=== PATIENT | male | born 1975 | race Asian ===

== ENCOUNTER 2021-05-18 03:51 | Emergency (ER) | payer MEDICAID ==
[~2021-05-18] VITALS: Ht 149.9 cm; Wt 40.3 kg
[~2021-05-18 03:51] MED LIST: ARIP5TAB14 PO; ATE25T PO; BUPR-94 PO; DIPH25CA83 PO; HALO5TAB PO; IBUP-1984 PO; LORA2TAB96 PO; MIN5C PO; QUET25TA PO; VITC500T PO
[2021-05-18] MEDS ORDERED: DOXY-1 PO (04:22)
[2021-05-18] MEDS: DOXYCYCLINE 100MG CAPSULE PO STA (04:40)
[2021-05-18 05:09] VITALS: BP 127/79
== END 2021-05-18 05:12 | disposition home or self-care (01) ==
LOC: ER 03:52
DX: A69.0 Necrotizing ulcerative stomatitis (principal); K12.2 Cellulitis and abscess of mouth; I10 Essential (primary) hypertension; F20.9 Schizophrenia, unspecified; F15.10 Other stimulant abuse, uncomplicated; Z56.0 Unemployment, unspecified; Z79.899 Other long term (current) drug therapy
CPT/HCPCS: 99283